=== PATIENT | male | born 1995 | race Caucasian/White ===

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

== ENCOUNTER 2017-03-21 09:46 | Emergency (ER) | payer OTHER ==
[2017-03-21 09:56] VITALS: RESP 18
[2017-03-21] MEDS ORDERED: SODIUM CHLORIDE 0.9% 1,000 ML IV STA (10:24)
--- NOTE | 2017-03-21 10:31 | ED ---
General Adult HPI - General Chief complaint: Abdominal Pain Stated complaint: dizziness, abdominal pain Time Seen by Provider: 03/21/17 10:11 Source: patient, RN notes reviewed Mode of arrival: wheelchair Limitations: no limitations - History of Present Illness Initial comments: 22-year-old male presents to the emergency department with a chief complaint of 2 complaints. First the patient states that he has sores on the genital area. Patient states he noticed that there was some mild dysuria. Patient states she is sexually active. Patient denies any oozing or drainage from the sores but states that they are painful. Patient states he's also noticed that he has had some dizziness. Patient states that his dizziness is been going on for the past 2 days. He states he's been eating and drinking normally. He states that there is been no fever or chills. He states he's never been to the like this before so he was concerned. Patient denies any other symptoms at this time. Patient denies any recent fever, chills, shortness of breath, chest pain, back pain, abdominal pain, nausea vomiting, numbness or tingling, hematuria, constipation or diarrhea, headaches or visual changes, or any other current symptoms. - Related Data Home Medications Medication Instructions Recorded Confirmed HYDROcodone/APAP 5-325MG [[place] 0.5 tab PO HS PRN 03/21/17 03/21/17 5-325] Previous Rx's Medication Instructions Recorded Acyclovir [Zovirax] 400 mg PO TID 7 Days tab 03/21/17 Allergies Allergy/AdvReac Type Severity Reaction Status Date / Time No Known Allergies Allergy Verified 03/21/17 10:11 Review of Systems ROS Statement: Those systems with pertinent positive or pertinent negative responses have been documented in the HPI. ROS Other: All systems not noted in ROS Statement are negative. Past Medical History Past Medical History: No Reported History Additional Past Medical History / Comment(s): 3-4 concussions History of Any Multi-Drug Resistant Organisms: None Reported Past Surgical History: No Surgical Hx Reported Past Anesthesia/Blood Transfusion Reactions: No Reported Reaction Past Psychological History: ADD/ADHD Smoking Status: Current every day smoker Past Alcohol Use History: Occasional Past Drug Use History: Marijuana - Past Family History Father Additional Family Medical History / Comment(s): Father is age 44 with history of bipolar, depression Mother Additional Family Medical History / Comment(s): Mother is alive at age 44 with history of bipolar with no medical treatment. Brother(s) Additional Family Medical History / Comment(s): Patient has 1 brother that has bipolar Sister(s) Additional Family Medical History / Comment(s): Patient has 3 sisters and one has from heroin overdose, one has bipolar and was born with her organs inside her body, and one has no medical problems. General Exam - General Exam Comments Initial Comments: General: The patient is awake and alert, in no distress, and does not appear acutely ill. Eye: Pupils are equal, round and reactive to light, extra-ocular movements are intact; there is normal conjunctiva bilaterally. No signs of icterus. Ears, nose, mouth and throat: There are moist mucous membranes and no oral lesions. Neck: The neck is supple, there is no tenderness. Cardiovascular: There is a regular rate and rhythm. No murmur, rub or gallop is appreciated. Respiratory: Lungs are clear to auscultation, respirations are non-labored, breath sounds are equal. No wheezes, stridor, rales, or rhonchi. Gastrointestinal: Soft, non-distended, non-tender abdomen without masses or organomegaly noted. There is no rebound or guarding present. No CVA tenderness. Bowel sounds are unremarkable. Back: There is no tenderness to palpation in the midline. There is no obvious deformity. No rashes noted. Musculoskeletal: Normal ROM, no tenderness, There is no pedal edema. There is no calf tenderness or swelling. Sensation intact. Pulses equal bilaterally 2+. Neurological: CN II-XII intact, There are no obvious motor or sensory deficits. Coordination appears grossly intact. Speech is normal. Skin: Skin is warm and dry and no rashes or lesions are noted. Psychiatric: Cooperative, appropriate mood & affect, normal judgment. Limitations: no limitations Course Vital Signs 03/21/17 09:51 Temperature 99.1 F Pulse Rate 81 Respiratory 18 Rate Blood Pressure 140/85 O2 Sat by Pulse 100 Oximetry Medical Decision Making - Medical Decision Making 22-year-old male presents for dizziness as well as a genital complaint. This time patient does appear to have a suspicion for herpes. At this time we will treat the patient. We did discuss follow-up with his doctor and return parameters and all his questions. He stated that he understood and he is in agreement this plan. All questions have been answered. This time the patient will be discharged. - Lab Data Result diagrams: 03/21/17 10:40 03/21/17 10:40 Lab Results 03/21/17 03/21/17 03/21/17 Range/Units 09:57 10:40 10:40 WBC 4.7 (4.0-11.0) k/uL RBC 4.88 (4.30-5.90) m/uL Hgb 14.3 (13.0-17.5) gm/dL Hct 43.2 (39.0-53.0) % MCV 88.4 (80.0-100.0) fL MCH 29.2 (25.0-35.0) pg MCHC 33.0 (31.0-37.0) g/dL RDW 12.5 (11.5-15.5) % Plt Count 300 (150-450) k/uL Neutrophils % 71 % Lymphocytes % 17 % Monocytes % 8 % Eosinophils % 2 % Basophils % 1 % Neutrophils # 3.3 (1.3-7.7) k/uL Lymphocytes # 0.8 L (1.0-4.8) k/uL Monocytes # 0.4 (0-1.0) k/uL Eosinophils # 0.1 (0-0.7) k/uL Basophils # 0.0 (0-0.2) k/uL Sodium 142 (137-145) mmol/L Potassium 4.4 (3.5-5.1) mmol/L Chloride 103 (98-107) mmol/L Carbon Dioxide 26 (22-30) mmol/L Anion Gap 13 mmol/L BUN 11 (9-20) mg/dL Creatinine 0.99 (0.66-1.25) mg/dL Est GFR (MDRD) Af Amer >60 (>60 ml/min/1.73 sqM) Est GFR (MDRD) Non-Af >60 (>60 ml/min/1.73 sqM) Glucose 91 (74-99) mg/dL Calcium 9.9 (8.4-10.2) mg/dL Total Bilirubin 0.5 (0.2-1.3) mg/dL AST 30 (17-59) U/L ALT 39 (21-72) U/L Alkaline Phosphatase 61 (38-126) U/L Total Protein 8.4 H (6.3-8.2) g/dL Albumin 4.9 (3.5-5.0) g/dL Urine Color Yellow Urine Appearance Clear (Clear) Urine pH 6.5 (5.0-8.0) Ur Specific [place] 1.014 (1.001-1.035) Urine Protein Negative (Negative) Urine Glucose (UA) Negative (Negative) Urine Ketones Negative (Negative) Urine Blood Negative (Negative) Urine Nitrite Negative (Negative) Urine Bilirubin Negative (Negative) Urine Urobilinogen <2.0 (<2.0) mg/dL Ur Leukocyte Esterase Negative (Negative) Disposition Clinical Impression: Herpes genitalis in men Disposition: HOME SELF-CARE Condition: Stable Instructions: Genital Herpes Simplex (ED) Additional Instructions: Please use medication as discussed. Please follow up with family doctor if symptoms have not improved over the next two days. Please return to the emergency room if your symptoms increase or worsen or for any other concerns. Prescriptions: Acyclovir [Zovirax] 400 mg PO TID 7 Days tab Referrals: Jeb Grimes MD [Primary Care Provider] - 1-2 days Time of Disposition: 11:19
[2017-03-21 10:54] LABS: Basophils % (A) 1 %; CH 29.8; CHCM 33.9; Eosinophils # (A) 0.1 k/uL (0-0.7); Eosinophils % (A) 2 %; HCT 43.2 % (39.0-53.0); HDW 2.53; HGB 14.3 gm/dL (13.0-17.5); Luc # (Auto) 0.05; Luc % (Auto) 1; Lymphocytes # (A) 0.8 k/uL (1.0-4.8); Lymphocytes % (A) 17 %; MCH 29.2 pg (25.0-35.0); MCV 88.4 fL (80.0-100.0); Mean Platelet Volume 6.6; Monocytes # (A) 0.4 k/uL (0-1.0); Monocytes % (A) 8 %; Neutrophils # (A) 3.3 k/uL (1.3-7.7); Neutrophils % (A) 71 %; RBC 4.88 m/uL (4.30-5.90); RDW 12.5 % (11.5-15.5); WBC 4.7 k/uL (4.0-11.0); WBC (Perox) 4.39
[2017-03-21 10:56] LABS: Appearance,Urine Clear (Clear); Bilirubin,Urine Negative (Negative); Glucose,Urine (UA) Negative (Negative); Ketones,Urine Negative (Negative); Leukocyte Esterase,Urine Negative (Negative); Nitrite,Urine Negative (Negative); PH, Urine 6.5 (5.0-8.0); Protein,Urine Negative (Negative); Specific Gravity,Urine 1.014 (1.001-1.035); UA Billing (MACRO vs. MICRO) CHEM; Urobilinogen,Urine <2.0 mg/dL (<2.0)
[2017-03-21 11:03] LABS: ALT 39 U/L (21-72); AST 30 U/L (17-59); Alkaline Phosphatase 61 U/L (38-126); Anion Gap 13 mmol/L; Blood Urea Nitrogen 11 mg/dL (9-20); Calcium 9.9 mg/dL (8.4-10.2); Carbon Dioxide 26 mmol/L (22-30); Chloride 103 mmol/L (98-107); Glucose 91 mg/dL (74-99); Non-African American GFR(MDRD) >60 (>60 ml/min/1.73 sqM); Potassium 4.4 mmol/L (3.5-5.1); Sodium 142 mmol/L (137-145); Total Bilirubin 0.5 mg/dL (0.2-1.3); Total Protein 8.4 g/dL (6.3-8.2)
[2017-03-21 11:34] VITALS: BP 136/75; PULSE 80; TEMP 99
== END 2017-03-21 11:35 | disposition home or self-care (01) ==
LOC: EC 09:46
DX: A60.00 Herpesviral infection of urogenital system, unspecified (principal); R42 Dizziness and giddiness; R30.0 Dysuria; F17.200 Nicotine dependence, unspecified, uncomplicated
CPT/HCPCS: 36415; 80053; 81003; 85025; 87086; 87491; 87591; 96360; 99284

== ENCOUNTER 2019-12-08 13:29 | Inpatient (IN) | payer MEDICAID, OTHER ==
--- NOTE | 2019-12-08 14:31 | ED ---
Psych HPI - General Chief Complaint: Psychiatric Symptoms Stated Complaint: Mental Health Time Seen by Provider: 12/08/19 13:59 Source: patient, RN notes reviewed Mode of arrival: ambulatory - History of Present Illness Initial Comments: This is a 24-year-old male with no prior history of psychiatric disorders who apparently took some drugs 26 of November thinking it was acid. Since that time per family he is not been acting right. His been using also other drugs plus Nilsa he denies doing any alcohol. He states he would like to kill the person that given the acid because he doesn't believe it was actually acid. He also states he wanted to stab himself. Patient is demonstrating flight of ideas during the interview. He initially did not want me to evaluate him he has agreed that I could evaluate him. MD Complaint: suicidal ideation, feels depressed - Related Data Home Medications Medication Instructions Recorded Confirmed valACYclovir HCL [Valtrex] 500 mg PO BID PRN 12/08/19 12/08/19 Allergies Allergy/AdvReac Type Severity Reaction Status Date / Time No Known Allergies Allergy Verified 12/08/19 15:05 Review of Systems ROS Statement: Those systems with pertinent positive or pertinent negative responses have been documented in the HPI. ROS Other: All systems not noted in ROS Statement are negative. Past Medical History Past Medical History: No Reported History Additional Past Medical History / Comment(s): 3-4 concussions History of Any Multi-Drug Resistant Organisms: None Reported Past Surgical History: No Surgical Hx Reported Past Anesthesia/Blood Transfusion Reactions: No Reported Reaction Past Psychological History: ADD/ADHD Smoking Status: Current every day smoker Past Alcohol Use History: Occasional Past Drug Use History: Marijuana - Past Family History Father Additional Family Medical History / Comment(s): Father is age 44 with history of bipolar, depression Mother Additional Family Medical History / Comment(s): Mother is alive at age 44 with history of bipolar with no medical treatment. Brother(s) Additional Family Medical History / Comment(s): Patient has 1 brother that has bipolar Sister(s) Additional Family Medical History / Comment(s): Patient has 3 sisters and one has from heroin overdose, one has bipolar and was born with her organs inside her body, and one has no medical problems. General Exam - General Exam Comments Initial Comments: Is a well-developed well-nourished awake alert male demonstrate a flight of ideas Limitations: no limitations General appearance: alert, anxious Head exam: Present: atraumatic, normocephalic, normal inspection Eye exam: Present: normal appearance, PERRL, EOMI. Absent: scleral icterus, conjunctival injection, periorbital swelling ENT exam: Present: normal exam, mucous membranes moist Neck exam: Present: normal inspection. Absent: tenderness, meningismus, lymphadenopathy Respiratory exam: Present: normal lung sounds bilaterally. Absent: respiratory distress, wheezes, rales, rhonchi, stridor Cardiovascular Exam: Present: regular rate, normal rhythm, normal heart sounds. Absent: systolic murmur, diastolic murmur, rubs, gallop, clicks GI/Abdominal exam: Present: soft, normal bowel sounds. Absent: distended, tenderness, guarding, rebound, rigid Extremities exam: Present: normal inspection, full ROM, normal capillary refill. Absent: tenderness, pedal edema, joint swelling, calf tenderness Back exam: Present: normal inspection Neurological exam: Present: alert, oriented X3, CN II-XII intact Psychiatric exam: Present: depressed, anxious, homicidal ideation, suicidal ideation Skin exam: Present: warm, dry, intact, normal color. Absent: rash Course Vital Signs 12/08/19 13:43 Temperature 98.1 F Pulse Rate 88 Respiratory 16 Rate Blood Pressure 182/93 O2 Sat by Pulse 98 Oximetry Medical Decision Making - Medical Decision Making The patient was evaluated by the psych service will be admitted for inpatient treatment. He is a voluntary admit. - Lab Data Lab Results 12/08/19 Range/Units 15:44 Urine Opiates Screen Not Detected (NotDetected) Ur Oxycodone Screen Not Detected (NotDetected) Urine Methadone Screen Not Detected (NotDetected) Ur Propoxyphene Screen Not Detected (NotDetected) Ur Barbiturates Screen Not Detected (NotDetected) U Tricyclic Antidepress Not Detected (NotDetected) Ur Phencyclidine Scrn Not Detected (NotDetected) Ur Amphetamines Screen Not Detected (NotDetected) U Methamphetamines Scrn Not Detected (NotDetected) U Benzodiazepines Scrn Not Detected (NotDetected) Urine Cocaine Screen Not Detected (NotDetected) U Marijuana (THC) Screen Detected H (NotDetected) Disposition Clinical Impression: Depression, Suicidal ideation Disposition: TRANSFER TO PSYCH HOSP/UNIT Condition: Fair
[2019-12-08 16:16] LABS: Amphetamine Screen,Urine Not Detected (NotDetected); Barbiturate Screen,Urine Not Detected (NotDetected); Benzodiazepines Screen,Urine Not Detected (NotDetected); Cocaine Screen,Urine Not Detected (NotDetected); Methadone Screen, Urine Not Detected (NotDetected); Opiate Screen,Urine Not Detected (NotDetected); Oxycodone Screen, Urine Not Detected (NotDetected); Phencyclidine Screen,Urine Not Detected (NotDetected); Tricyclic Antidepressant,Urine Not Detected (NotDetected); Urn Cannabinoid Scrn Detected (NotDetected)
[2019-12-08] MEDS ORDERED: MAG HYDROX/AL HYDROX/SIMETH 30 ML CUP PO PRN (17:30)
[2019-12-08] MEDS ORDERED: ZIPRASIDONE 20 MG VIAL IM PRN (17:30)
[2019-12-08] MEDS ORDERED: MAGNESIUM HYDROXIDE 2,400 MG/10 ML CUP PO PRN (17:30)
[2019-12-08] MEDS ORDERED: ACETAMINOPHEN TAB 325 MG TAB PO PRN (17:30)
[2019-12-08] MEDS ORDERED: LORazepam 2 MG/ML INJ IM PRN (17:32)
[2019-12-08] MEDS: NICOTINE 14MG/24HR PATCH TRANSDERM SCH (19:26)
[2019-12-08] MEDS: LORazepam 1 MG TAB PO PRN (19:43)
[2019-12-09 07:59] LABS: Basophils % (A) 0 %; Eosinophils # (A) 0.3 k/uL (0-0.7); Eosinophils % (A) 4 %; HCT 43.2 % (39.0-53.0); HGB 14.2 gm/dL (13.0-17.5); Lymphocytes # (A) 1.4 k/uL (1.0-4.8); Lymphocytes % (A) 18 %; MCH 29.3 pg (25.0-35.0); MCHC 32.8 g/dL (31.0-37.0); MCV 89.1 fL (80.0-100.0); Mean Platelet Volume 7.3; Monocytes # (A) 0.4 k/uL (0-1.0); Monocytes % (A) 5 %; Neutrophils # (A) 5.5 k/uL (1.3-7.7); Neutrophils % (A) 71 %; Platelet Count 350 k/uL (150-450); RBC 4.84 m/uL (4.30-5.90); RDW 12.7 % (11.5-15.5); WBC 7.7 k/uL (3.8-10.6)
[2019-12-09 08:08] LABS: ALT 22 U/L (4-49); AST 28 U/L (17-59); African American GFR (CKD) >90 (>60 ml/min/1.73 sqM); Alkaline Phosphatase 59 U/L (38-126); Anion Gap 10 mmol/L; Blood Urea Nitrogen 12 mg/dL (9-20); Calcium 9.8 mg/dL (8.4-10.2); Carbon Dioxide 23 mmol/L (22-30); Chloride 106 mmol/L (98-107); Cholesterol 124 mg/dL (<200); Glucose 88 mg/dL (74-99); HDL Cholesterol 31 mg/dL (40-60); LDL Cholesterol,Calculated 76 mg/dL (0-99); Non-African American GFR(CKD) >90 (>60 ml/min/1.73 sqM); Potassium 4.6 mmol/L (3.5-5.1); Sodium 139 mmol/L (137-145); Total Protein 8.2 g/dL (6.3-8.2); Triglycerides 86 mg/dL (<150)
[2019-12-09] MEDS: NICOTINE 14MG/24HR PATCH TRANSDERM SCH (08:22)
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
[2019-12-09 14:04] LABS: Hemoglobin A1C 5.4 % (4.0-6.0)
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
[2019-12-10] MEDS: NICOTINE 14MG/24HR PATCH TRANSDERM SCH (08:54)
[2019-12-10] MEDS: LORazepam 1 MG TAB PO PRN (08:55)
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
[2019-12-11 08:49] VITALS: BP 141/79; PULSE 106; RESP 20; TEMP 98.1
== END 2019-12-10 14:17 | disposition home or self-care (01) | DRG 885 ==
LOC: EC 13:29 → 3MHU 17:06
PROVIDERS: ADMIT Psychiatry & Neurology Psychiatry; ATTEND Psychiatry & Neurology Psychiatry
DX: F31.9 Bipolar disorder, unspecified (principal); R45.851 Suicidal ideations; F15.20 Other stimulant dependence, uncomplicated; F60.2 Antisocial personality disorder; E66.9 Obesity, unspecified; Z68.37 Body mass index [BMI] 37.0-37.9, adult; Z56.0 Unemployment, unspecified; F17.210 Nicotine dependence, cigarettes, uncomplicated; F17.290 Nicotine dependence, other tobacco product, uncomplicated; Z81.3 Family history of other psychoactive substance abuse and dependence; Z81.8 Family history of other mental and behavioral disorders; F90.9 Attention-deficit hyperactivity disorder, unspecified type; Z65.3 Problems related to other legal circumstances; F41.9 Anxiety disorder, unspecified
CPT/HCPCS: 80053; 80061; 80306; 82075; 83036; 84443; 85025; 99285